=== PATIENT | male | born 1935 | race Caucasian/White ===

== ENCOUNTER 2019-10-04 11:04 | Observation (INO) | payer MEDICARE, OTHER ==
--- NOTE | 2019-10-04 11:35 | ERPHSYRPT ---
- History of Present Illness Time Seen by Provider: 10/04/19 11:31 Source: patient, family Exam Limitations: no limitations Patient Subjective Stated Complaint: Pt son in law states "he was up this morning with a leg that was numb and he just kept walking and he fell at some point and we found him on the basement floor. He fell approx 45 min ago." Triage Nursing Assessment: Pt presented alert and oriented X 2, skin pwd Pt ambulates with an upright steady gait, able to speak in clear full sentences. Pt has large laceration noted to left eyebrow, pupils are perrl. PT does not know what happened. Physician History: This is an 83-year-old gentleman on Plavix and aspirin who complained at approximately 230 this morning that he was having some numbness and weakness in his right lower extremity. Patient was in his basement approximately half hour prior to his arrival to this emergency department and fell hitting his head. Since his head injury this morning he has been bleeding from the laceration site and also confused. Patient is moving all his extremities speaking clearly but does not recall the events. Occurred: this morning Reason for Fall: unknown (But was complaining of right side numbness and weakness several hours prior to the the fall.) Injuries/Pain Location: head Loss of Consciousness: no loss of consciousness Severity of Pain-Max: mild Severity of Pain-Current: mild Associated Symptoms (Fall): confusion, headache (Mild), vision changes (Left eye decreased vision) Allergies/Adverse Reactions: No Known Drug Allergies Allergy (Verified 03/09/19 15:57) Home Medications: Aspirin 81 mg PO DAILY 01/07/13 [History] Clopidogrel Bisulfate 75 mg [PLAVIX 75 MG Tablet] 75 mg PO DAILY 01/07/13 [History] Lisinopril 10 mg [Zestril 10 MG] 10 mg PO DAILY 01/07/13 [History] Metoprolol Tartrate 25 mg [Lopressor 25MG Tab] 25 mg PO BID 01/07/13 [ History] Mometasone Furoate [Asmanex] 220 mcg IH BID 01/07/13 [History] Omeprazole 20 MG [Prilosec 20 mg] 20 mg PO HS 01/07/13 [History] Simvastatin 80 mg PO DAILY 01/07/13 [History] Terazosin HCl 5 mg [Hytrin 5Mg] 5 mg PO HS 01/07/13 [History] Hx Tetanus, Diphtheria Vaccination/Date Given: (unknown) Hx Influenza Vaccination/Date Given: (unknown) Hx Pneumococcal Vaccination/Date Given: (unknown) Immunizations Up to Date: Yes - Review of Systems Constitutional: No Symptoms Eyes: Vision Changes (Left eye after fall) Ears, Nose, & Throat: No Symptoms Respiratory: No Symptoms Cardiac: No Symptoms Abdominal/Gastrointestinal: No Symptoms Genitourinary Symptoms: No Symptoms Musculoskeletal: Fall, Injury, No Neck Pain Skin: No Symptoms Neurological: Headache (Mild), Other (Confusion) Psychological: No Symptoms Endocrine: No Symptoms Hematologic/Lymphatic: No Symptoms, Easy Bleeding, Easy Bruising Immunological/Allergic: No Symptoms All Other Systems: Reviewed and Negative - Past Medical History Pertinent Past Medical History: Yes Neurological History: No Pertinent History ENT History: No Pertinent History Cardiac History: Aneurysm, High Cholesterol, Hypertension, Other Respiratory History: Asthma, Bronchitis, Pneumonia, Sleep Apnea Endocrine Medical History: No Pertinent History Musculoskeletal History: No Pertinent History GI Medical History: GI Bleed, Hernia History: No Pertinent History Psycho-Social History: No Pertinent History Male Reproductive Disorders: Prostate Problems Other Medical History: stents placed times 3 - Past Surgical History Past Surgical History: Yes Neuro Surgical History: No Pertinent History Cardiac: Cardiac Catheterization, Cardiac Stent Respiratory: No Pertinent History Gastrointestinal: Hernia Repair Genitourinary: No Pertinent History Musculoskeletal: Orthopedic Surgery Male Surgical History: Vasectomy Other Surgical History: lt elbow - Social History Smoking Status: Never smoker Exposure to second hand smoke: No Drug Use: none Patient Lives Alone: No - Nursing Vital Signs Nursing Vital Signs: Initial Vital Signs Temperature 98.0 F 10/04/19 11:06 Pulse Rate 72 10/04/19 11:06 Respiratory Rate 18 10/04/19 11:06 Blood Pressure 164/86 10/04/19 11:06 O2 Sat by Pulse Oximetry 94 L 10/04/19 11:06 Pain Scale Pain Intensity 0 - Francisco Coma Score Best Eye Response ([place]): (4) open spontaneously Best Verbal Response (Francisco): (4) confused conversation Best Motor Response (Francisco): (6) obeys commands Francisco Total: 14 - Physical Exam General Appearance: mild distress, alert, anxiety Head Injury: lacerations (above left eye;), swelling, tenderness Eye Exam: PERRL/EOMI, eyes nml inspection, other (None large amount of swelling left side periorbital area. The upper and lower eyelids were retracted cranially and caudally and patient's extraocular muscles were completely intact. ) ENT Exam: airway nml, nml ext.inspection, No evidence of ENT injury, No dental injury, No oral injury Neck Exam: supple, trachea midline, full range of motion, normal alignment, normal inspection Respiratory/Chest Exam: normal breath sounds, No chest tenderness, No respiratory distress, No ecchymosis, No crepitus Cardiovascular Exam: normal heart sounds, regular rate/rhythm Gastrointestinal Exam: soft, No normal bowel sounds, No tenderness Rectal Exam: not done Back Exam: normal inspection, normal range of motion, No CVA tenderness, No vertebral tenderness Extremity Exam: normal inspection, normal range of motion, pelvis stable, No capillary refill <3 sec, No deformities, No lacerations Neurologic Exam: alert, cooperative, platform operations director II-XII nml as tested, normal mood/ affect, nml cerebellar function, nml station & gait, disoriented, confusion Skin Exam: normal color, warm, dry SpO2 Interpretation: borderline oxygenation SpO2: 94 O2 Delivery: Room Air - Course Nursing assessment & vital signs reviewed: Yes EKG Interpreted by Me: RATE (63), Sinus Rhythm, Left Anderson Deviation, NORMAL INTERVALS, NORMAL QRS, Other (No comparison EKG available.) Ordered Tests: Active Orders 24 hr Category Date Time Status Freight Clerk STAT Care 10/04/19 11:44 Active EKG-ER Only STAT Care 10/04/19 11:45 Active IV Insertion STAT Care 10/04/19 11:43 Active Pulse Oximetry (ED) STAT Care 10/04/19 11:43 Active HEAD WITHOUT CONTRAST [CT] Routine Exams 10/04/19 11:29 Completed MRI BRAIN W/O CONTRAST [MRI] Stat Exams 10/04/19 12:12 Completed CBC W DIFF Stat Lab 10/04/19 11:54 Completed CMP Stat Lab 10/04/19 11:54 Completed PROTIME WITH INR Stat Lab 10/04/19 11:54 Completed UA W/RFX UR CULTURE Stat Lab 10/04/19 12:24 Completed Transfer Order Routine Transfer 10/04/19 Ordered Lab/Rad Data: Laboratory Result Diagrams 10/04/19 11:54 10/04/19 11:54 Laboratory Results 10/04/19 10/04/19 10/04/19 Range/Units 12:24 11:54 11:54 WBC (4.0-10.5) K/mm3 RBC (4.1-5.6) M/mm3 Hgb (12.5-18.0) gm/dl Hct (42-50) % MCV (78-100) fl MCH (26-32) pg MCHC (32-36) g/dl RDW (11.5-14.0) % Plt Count (150-450) K/mm3 MPV (7.5-11.0) fl Gran % (36.0-66.0) % Eos # (Auto) (0-0.5) Absolute Lymphs (auto) (1.0-4.6) Absolute Monos (auto) (0.0-1.3) Lymphocytes % (24.0-44.0) % Monocytes % (0.0-12.0) % Eosinophils % (0.00-5.0) % Basophils % (0.0-0.4) % Absolute Granulocytes (1.4-6.9) Basophils # (0-0.4) PT 12.0 (8.83-12.87) SECONDS INR 1.06 (0.8-3.0) Sodium 141 (137-145) mmol/L Potassium 4.1 (3.5-5.1) mmol/L Chloride 109 H (98-107) mmol/L Carbon Dioxide 26 (22-30) mmol/L Anion Gap 9.9 (5-15) MEQ/L BUN 28 H (9-20) mg/dL Creatinine 0.97 (0.66-1.25) mg/dL Estimated GFR > 60.0 ML/MIN Glucose 117 H (74-106) mg/dL Calcium 8.3 L (8.4-10.2) mg/dL Total Bilirubin 0.50 (0.2-1.3) mg/dL AST 34 (17-59) U/L ALT 23 (0-50) U/L Alkaline Phosphatase 84 (38-126) U/L Serum Total Protein 7.1 (6.3-8.2) g/dL Albumin 3.8 (3.5-5.0) g/dL Urine Color YELLOW (YELLOW) Urine Appearance CLEAR (CLEAR) Urine pH 6.0 (5-6) Ur Specific [place] 1.023 (1.005-1.025) Urine Protein NEGATIVE (Negative) Urine Ketones NEGATIVE (NEGATIVE) Urine Blood NEGATIVE (0-5) [place]/ul Urine Nitrite NEGATIVE (NEGATIVE) Urine Bilirubin NEGATIVE (NEGATIVE) Urine Urobilinogen 2 (0-1) mg/dL Ur Leukocyte Esterase NEGATIVE (NEGATIVE) Urine WBC (Auto) NONE (0-5) /HPF Urine RBC (Auto) NONE (0-2) /HPF U Epithel Cells (Auto) NONE (FEW) /HPF Urine Bacteria (Auto) NONE (NEGATIVE) /HPF Urine Mucus (Auto) SLIGHT (NEGATIVE) /HPF Urine Culture Reflexed NO (NO) Urine Glucose NEGATIVE (NEGATIVE) mg/dL 10/04/19 Range/Units 11:54 WBC 10.0 (4.0-10.5) K/mm3 RBC 4.44 (4.1-5.6) M/mm3 Hgb 13.3 (12.5-18.0) gm/dl Hct 39.8 L (42-50) % MCV 89.6 (78-100) fl MCH 30.0 (26-32) pg MCHC 33.4 (32-36) g/dl RDW 14.2 H (11.5-14.0) % Plt Count 324 (150-450) K/mm3 MPV 9.6 (7.5-11.0) fl Gran % 70.8 H (36.0-66.0) % Eos # (Auto) 0.31 (0-0.5) Absolute Lymphs (auto) 1.47 (1.0-4.6) Absolute Monos (auto) 1.07 (0.0-1.3) Lymphocytes % 14.7 L (24.0-44.0) % Monocytes % 10.7 (0.0-12.0) % Eosinophils % 3.1 (0.00-5.0) % Basophils % 0.7 (0.0-0.4) % Absolute Granulocytes 7.11 H (1.4-6.9) Basophils # 0.07 (0-0.4) PT (8.83-12.87) SECONDS INR (0.8-3.0) Sodium (137-145) mmol/L Potassium (3.5-5.1) mmol/L Chloride (98-107) mmol/L Carbon Dioxide (22-30) mmol/L Anion Gap (5-15) MEQ/L BUN (9-20) mg/dL Creatinine (0.66-1.25) mg/dL Estimated GFR ML/MIN Glucose (74-106) mg/dL Calcium (8.4-10.2) mg/dL Total Bilirubin (0.2-1.3) mg/dL AST (17-59) U/L ALT (0-50) U/L Alkaline Phosphatase (38-126) U/L Serum Total Protein (6.3-8.2) g/dL Albumin (3.5-5.0) g/dL Urine Color (YELLOW) Urine Appearance (CLEAR) Urine pH (5-6) Ur Specific [place] (1.005-1.025) Urine Protein (Negative) Urine Ketones (NEGATIVE) Urine Blood (0-5) [place]/ul Urine Nitrite (NEGATIVE) Urine Bilirubin (NEGATIVE) Urine Urobilinogen (0-1) mg/dL Ur Leukocyte Esterase (NEGATIVE) Urine WBC (Auto) (0-5) /HPF Urine RBC (Auto) (0-2) /HPF U Epithel Cells (Auto) (FEW) /HPF Urine Bacteria (Auto) (NEGATIVE) /HPF Urine Mucus (Auto) (NEGATIVE) /HPF Urine Culture Reflexed (NO) Urine Glucose (NEGATIVE) mg/dL - Progress Progress: improved Progress Note: 10/04/19 12:15 Medical decision making: This patient is reexamined and he is alert and oriented x3. He is neurologically intact. The CAT scan does not appear to have acute infarction present. There is no obvious fractures present on the CAT scan. We are awaiting the final report. The next step is to perform an MRI scan of his brain. Patient states he has shrapnel and a BB in his body but no other types of metal. We called Steven, supply chain development manager, to determine whether or not this patient can undergo an MRI scan with the shrapnel and BB present in his body. Steven statesthat this patient can undergo the MRI scan of his brain. 10/04/19 14:[address] Quevedo. I reviewed the patient's history and condition. I reviewed the patient's EKG CAT scan of his brain which shows no acute intracranial pathology or process. I reviewed the patient's MRI of his brain which also shows no acute intracranial pathology or process. Dr. Quevedo agrees that placing the patient in observation is appropriate. We will have the floor perform neurologic checks and repeat laboratory data in the morning. We will place ice pack to the patient's left eye swelling. Counseled pt/family regarding: lab results, diagnosis, need for follow-up, rad results - Departure Departure Disposition: Observation Clinical Impression: Fall, Laceration of forehead, TIA (transient ischemic attack) Condition: Stable Critical Care Time: Yes Critical Care Time(excluding separately billable procedures): Critical 30-74 mins Referrals: JENNY QUEVEDO [Primary Care Provider] -
--- NOTE | 2019-10-04 11:45 | XRAY ---
Indication: Left supraorbital swelling/laceration. Multiple contiguous axial images obtained through the head without contrast. Comparison: January 07, 2013. Again age-appropriate global atrophy and mild periventricular degenerative micro-ischemia bilaterally. No acute intracranial hemorrhage, abnormal extra-axial fluid collection, or mass effect. Fourth ventricle is midline without hydrocephalus. [place]-white matter differentiation preserved. Bony calvarium intact. Visualized paranasal sinuses and mastoid air cells are clear. New large left supraorbital/frontal scalp hematoma/laceration. Impression: 1. New left supraorbital/frontal scalp hematoma/laceration. No underlying fracture or acute intracranial abnormalities. 2. Again atrophy and degenerative micro-ischemia within normal limits for patient's age.
[2019-10-04 11:58] LABS: Absolute Neutrophil Ct (ANC) 7.11 (1.4-6.9); BASOPHIL % 0.7 % (0.0-0.4); Basophil (Absolute #) 0.07 (0-0.4); Eosinophil % 3.1 % (0.00-5.0); Eosinophil (Absolute #) 0.31 (0-0.5); Hematocrit 39.8 % (42-50); Hemoglobin 13.3 gm/dl (12.5-18.0); Lymphocyte (Absolute #) 1.47 (1.0-4.6); Lymphocytes % 14.7 % (24.0-44.0); Mean Cell Volume 89.6 fl (78-100); Mean Corpuscular Hgb Concent. 33.4 g/dl (32-36); Mean Platelet Volume 9.6 fl (7.5-11.0); Monocyte (Absolute #) 1.07 (0.0-1.3); Monocytes % 10.7 % (0.0-12.0); Neutrophil % 70.8 % (36.0-66.0); Platelet Count 324 K/mm3 (150-450); Red Blood Count 4.44 M/mm3 (4.1-5.6); Red Cell Distribution Width 14.2 % (11.5-14.0)
[2019-10-04 12:03] LABS: INR 1.06 (0.8-3.0)
[2019-10-04 12:07] LABS: ALBUMIN 3.8 g/dL (3.5-5.0); ALKALINE PHOSPHATASE 84 U/L (38-126); ANION GAP 9.9 MEQ/L (5-15); BLOOD UREA NITROGEN 28 mg/dL (9-20); CHLORIDE 109 mmol/L (98-107); Calcium 8.3 mg/dL (8.4-10.2); Carbon Dioxide 26 mmol/L (22-30); Creatinine 1 0.97 mg/dL (0.66-1.25); Glucose 117 mg/dL (74-106); Potassium 4.1 mmol/L (3.5-5.1); SGOT/AST 34 U/L (17-59); SGPT/ALT 23 U/L (0-50); SODIUM 141 mmol/L (137-145); Total Protein 7.1 g/dL (6.3-8.2)
[2019-10-04 12:37] LABS: Appearance CLEAR (CLEAR); Bilirubin NEGATIVE (NEGATIVE); Blood NEGATIVE Ery/ul (0-5); Glucose NEGATIVE (NEGATIVE); Ketones NEGATIVE (NEGATIVE); Leukocyte Esterase NEGATIVE (NEGATIVE); Mucus SLIGHT /HPF (NEGATIVE); Nitrite NEGATIVE (NEGATIVE); Protein,Urine Dip NEGATIVE (Negative); Specific Gravity 1.023 (1.005-1.025); Urobilinogen 2 mg/dL (0-1)
--- NOTE | 2019-10-04 14:15 | XRAY ---
Indication: Right-sided weakness. Status post fall. Left supraorbital laceration. Sagittal, coronal, and axial MRI brain was performed using T1, T2, FLAIR, diffusion, and ADC sequences. Comparison: None Age-appropriate global atrophy and mild periventricular degenerative micro-ischemia bilaterally. No acute intracranial hemorrhage, abnormal extra-axial fluid collection, or mass effect. Diffusion images are negative for restricted signal. Fourth ventricle is midline without hydrocephalus. 7/8 cranial nerve complex bilaterally symmetric. Normal flow-void signal within the major intracerebral circulation. Normal appearing craniocervical junction and sella turcica. Paranasal sinuses are clear. Left periorbital soft tissue swelling/hematoma. Impression: 1. Normal aging brain including atrophy and degenerative micro-ischemia. 2. No acute intracranial abnormalities or evidence for evolving large vessel territorial stroke. 3. Left periorbital soft tissue swelling/hematoma.
[2019-10-04] MEDS ORDERED: TYLENOL 325 MG PO PRN (14:58)
[2019-10-04] MEDS ORDERED: Zofran 4 MG/2 ML VIAL IV PRN (14:58)
[2019-10-04] MEDS ORDERED: [UNRECOGNIZED DRUG - REMARK] MC SCH (16:45)
[2019-10-04] MEDS ORDERED: ZOCOR 20MG PO SCH (18:00)
[2019-10-04] MEDS: PATIENT OWN MEDICATION IH SCH (20:00)
[2019-10-04] MEDS: Lopressor 25MG Tab PO SCH (21:03)
[2019-10-04] MEDS ORDERED: TERAZOSIN HCL 5 MG PO SCH (22:00)
[2019-10-04] MEDS ORDERED: HYTRIN 1 MG PO SCH (22:00)
[2019-10-05 05:02] LABS: Absolute Neutrophil Ct (ANC) 5.88 (1.4-6.9); BASOPHIL % 0.4 % (0.0-0.4); Basophil (Absolute #) 0.04 (0-0.4); Eosinophil % 3.3 % (0.00-5.0); Eosinophil (Absolute #) 0.32 (0-0.5); Hematocrit 39.5 % (42-50); Lymphocyte (Absolute #) 2.11 (1.0-4.6); Lymphocytes % 21.7 % (24.0-44.0); Mean Cell Volume 89.8 fl (78-100); Mean Corpuscular Hemoglobin 29.5 pg (26-32); Mean Corpuscular Hgb Concent. 32.9 g/dl (32-36); Mean Platelet Volume 9.8 fl (7.5-11.0); Monocyte (Absolute #) 1.36 (0.0-1.3); Neutrophil % 60.6 % (36.0-66.0); Platelet Count 327 K/mm3 (150-450); Red Cell Distribution Width 14.4 % (11.5-14.0); White Blood Count 9.7 K/mm3 (4.0-10.5)
[2019-10-05 05:27] LABS: ANION GAP 10.6 MEQ/L (5-15); BLOOD UREA NITROGEN 20 mg/dL (9-20); CHLORIDE 106 mmol/L (98-107); Calcium 8.5 mg/dL (8.4-10.2); Carbon Dioxide 26 mmol/L (22-30); Creatinine 1 0.95 mg/dL (0.66-1.25); Glucose 105 mg/dL (74-106); SODIUM 139 mmol/L (137-145)
[2019-10-05 06:35] VITALS: BP 140/79
[2019-10-05] MEDS: PATIENT OWN MEDICATION IH SCH (08:12)
[2019-10-05 08:15] VITALS: PULSE 72; O2SAT 94
[2019-10-05] MEDS: Lopressor 25MG Tab PO SCH (09:42)
[2019-10-05] MEDS ORDERED: LUTEIN PO SCH (10:00)
[2019-10-05] MEDS ORDERED: LYCOPEN PO SCH (10:00)
[2019-10-05] MEDS ORDERED: THERAGRAN MULTIVITAMIN PO SCH (10:00)
[2019-10-05] MEDS ORDERED: NON-FORMULARY ITEM (Simvastatin [Simvastatin] 40 MG) PO SCH (10:00)
[2019-10-05] MEDS ORDERED: Zestril 10 MG PO SCH (10:00)
[2019-10-05] MEDS ORDERED: MULTIVIT MIN PO SCH (10:00)
[2019-10-05] MEDS ORDERED: FLUZONE HIGH-DOSE 2019-20 SYR IM ONE (10:00)
[2019-10-05] MEDS ORDERED: [UNRECOGNIZED DRUG - OTHER] PO SCH (10:00)
[2019-10-05] MEDS ORDERED: Flomax 0.4 MG PO SCH (10:00)
--- NOTE | 2019-10-05 10:16 | SSS ---
DISCHARGE DIAGNOSES: 1) FALL. 2) HEAD TRAUMA WITH LACERATION TO THE SCALP. HISTORY: The patient is an 83 year-old white male who apparently had some weakness of his left leg, this was concerning for the possibility of transient ischemic attack. The patient however told me that he was chasing a grandchild around, tripped and hit his head on a pole supporting the basement. Either way he has a laceration over his head. He appears to be improving by the time I saw shortly after admission on 10/04/2019. PAST MEDICAL/SURGICAL HISTORY: Significant for coronary artery disease. He has had stents placed and therefore takes aspirin and Plavix. He has hypertension for which he takes lisinopril and metoprolol. He takes mometasone for a rash, omeprazole for gastroesophageal reflux disease, Simvastatin and terazosin. HOME MEDICATIONS: Aspirin, Plavix, lisinopril, metoprolol, mometasone, omeprazole, Simvastatin, terazosin. ALLERGIES: NKDA. PHYSICAL EXAMINATION: The patient's vital signs on admission showed his temperature to be 98.0F, pulse 72, respiratory rate 18, blood pressure 164/86. O2 saturation 94%. HEENT: Revealed trauma over the left frontal area which is currently covered with bandage dressing apparently with stitched 5 cm laceration in the emergency room. The patient has significant ecchymosis over his left eye in fact completely closing left eye. The right eye has some bruising as well. NECK: Supple without lymphadenopathy, thyromegaly or JVD. CHEST: Clear to auscultation. HEART: Regular rate and rhythm. ABDOMEN: Soft. EXTREMITIES: Without cyanosis, clubbing or edema. NEUROLOGIC: The patient is alert and oriented x3. No focal deficits were noted. LAB DATA AND TESTS: The patient's laboratory studies revealed his white count to be 9,700, hemoglobin 13.0, PLT count 327,000. His metabolic panel showed glucose of 105, BUN 20, creatinine 0.95. Electrolytes were normal. UA was normal. International normalized ratio was 1.06. He had CT scan of the head and also MRI of the same showing no underlying fracture or acute intracranial abnormalities. HOSPITAL COURSE: The patient was monitored overnight with neural checks and has done quite well. He is currently eating breakfast at bedside and is anxious to go home. He will discharge home at this time. Follow up in the office in a week to remove the stitches. He is to call us if he has any problems in the interim. We will ask him to hold his blood thinners of the aspirin and Plavix for one more day to help keep the swelling and bleeding down in the face.
== END 2019-10-05 10:10 | disposition home or self-care (01) ==
LOC: ED 11:04 → MED SURG 14:51
PROVIDERS: ADMIT Family Medicine; ATTEND Family Medicine
DX: S01.01XA Laceration without foreign body of scalp, initial encounter (principal); W18.30XA Fall on same level, unspecified, initial encounter; Y92.009 Unspecified place in unspecified non-institutional (private) residence as the place of occurrence of the external cause; I10 Essential (primary) hypertension; I25.10 Atherosclerotic heart disease of native coronary artery without angina pectoris; Z79.01 Long term (current) use of anticoagulants; Z79.899 Other long term (current) drug therapy
CPT/HCPCS: 12002; 36415; 70450; 70551; 80048; 80053; 81001; 85025; 85610; 93005; 93041; 93268; 94640; 94760; 99291; G0378; 36000; 90662; 99285; A9270-GY

== ENCOUNTER 2023-06-29 06:28 | Observation (INO) | payer MEDICARE, OTHER ==
--- NOTE | 2023-06-29 06:47 | ERPHSYRPT ---
- History of Present Illness Source: patient, family Exam Limitations: no limitations Timing/Duration: yesterday Severity: moderate Associated Symptoms: nausea, abdominal pain, chills Hx Tetanus, Diphtheria Vaccination/Date Given: (unknown) Hx Influenza Vaccination/Date Given: (unknown) Hx Pneumococcal Vaccination/Date Given: (unknown) <JIN RUIZ - Last Filed: 06/29/23 06:51> <BETH BENTON - Last Filed: 06/29/23 09:25> - History of Present Illness Time Seen by Provider: 06/29/23 06:42 Physician History: pt was doing well yesterday but today has fever and feels like he needs to throw up. He denies specific pain but had hernia repairs recently and has a distended and generally tender abdomen. He also has had CAD and 3 stents h which have not bothered him for years. They had a sick relative last week who tested negative for Covid. The and son were in ER as independent sources for the HX. DIscussed with family and Pt, the rsiks/benefits for testing with CT Abd, CBC, CMP, EKG, Trops, BNP, Lipase, Samara, Lactate, UA, and Tx with IVF andf Zofran and they wish to proceed. These are odered, and results discussed. (JIN RUIZ) Allergies/Adverse Reactions: No Known Drug Allergies Allergy (Verified 06/29/23 06:59) Home Medications: Aspirin 81 mg PO DAILY 01/07/13 [History] Clopidogrel Bisulfate [PLAVIX Tablet] 75 mg PO DAILY 01/07/13 [History] Lisinopril 10 mg [Zestril 10 MG] 10 mg PO DAILY 01/07/13 [History] Metoprolol Tartrate 25 mg [Lopressor 25MG Tab] 25 mg PO BID 01/07/13 [History] Simvastatin 40 mg PO DAILY 01/07/13 [History] Terazosin HCl 5 mg [Hytrin 5Mg] 5 mg PO HS 01/07/13 [History] Multivit-Min/FA/Lycopen/Lutein [Centrum Silver Tablet] 1 tab PO DAILY 10/04/19 [History] Tamsulosin HCl 0.4 mg [Flomax 0.4 MG] 0.4 mg PO DAILY 10/04/19 [History] - Review of Systems Constitutional: Fever, Chills Eyes: No Symptoms Ears, Nose, & Throat: No Symptoms Respiratory: No Cough, No Dyspnea Cardiac: No Chest Pain, No Edema, No Syncope Abdominal/Gastrointestinal: Abdominal Pain, Nausea, No Vomiting, No Diarrhea Genitourinary Symptoms: No Dysuria Musculoskeletal: No Back Pain, No Neck Pain Skin: No Rash Neurological: No Dizziness, No Focal Weakness, No Sensory Changes Psychological: No Symptoms Endocrine: No Symptoms Hematologic/Lymphatic: No Symptoms Immunological/Allergic: No Symptoms All Other Systems: Reviewed and Negative <JIN RUIZ - Joaquín Filed: 06/29/23 06:51> - Past Medical History Pertinent Past Medical History: Yes Neurological History: No Pertinent History ENT History: No Pertinent History Cardiac History: Aneurysm, High Cholesterol, Hypertension, Other Respiratory History: Asthma, Bronchitis, Pneumonia, Sleep Apnea Endocrine Medical History: No Pertinent History Musculoskeletal History: No Pertinent History GI Medical History: GI Bleed, Hernia History: No Pertinent History Psycho-Social History: No Pertinent History Male Reproductive Disorders: Prostate Problems Other Medical History: stents placed times 3 - Past Surgical History Past Surgical History: Yes Neuro Surgical History: No Pertinent History Cardiac: Cardiac Catheterization, Cardiac Stent Respiratory: No Pertinent History Gastrointestinal: Hernia Repair Genitourinary: No Pertinent History Musculoskeletal: Orthopedic Surgery Male Surgical History: Vasectomy Other Surgical History: lt elbow - Social History Smoking Status: Never smoker Exposure to second hand smoke: No Drug Use: none Patient Lives Alone: No <JIN RUIZ - Joaquín Filed: 06/29/23 06:51> - Physical Exam General Appearance: mild distress, alert Eye Exam: PERRL/EOMI, eyes nml inspection Ears, Nose, Throat Exam: normal ENT inspection, TMs normal, pharynx normal, moist mucous membranes Neck Exam: normal inspection, non-tender, supple, full range of motion Respiratory Exam: normal breath sounds, lungs clear, No respiratory distress Cardiovascular Exam: regular rate/rhythm, normal heart sounds, normal peripheral pulses Gastrointestinal/Abdomen Exam: soft, normal bowel sounds, tenderness, guarding, No mass Rectal Exam: deferred Back Exam: normal inspection, normal range of motion, No CVA tenderness, No vertebral tenderness Extremity Exam: normal inspection, normal range of motion, pelvis stable Neurologic Exam: alert, oriented x 3, cooperative, normal mood/affect, nml cerebellar function, nml station & gait, sensation nml, No motor deficits Skin Exam: normal color, warm, dry, No rash Lymphatic Exam: No adenopathy SpO2 Interpretation: borderline oxygenation SpO2: 93 O2 Delivery: Room Air <JIN RUIZ - Last Filed: 06/29/23 06:51> - Nursing Vital Signs Nursing Vital Signs: Initial Vital Signs Temperature 99.8 F 06/29/23 06:41 Pulse Rate 88 06/29/23 06:41 Respiratory Rate 20 06/29/23 06:41 Blood Pressure 131/69 06/29/23 06:41 O2 Sat by Pulse Oximetry 91 L 06/29/23 06:41 Pain Scale Pain Intensity 6 Ordered Tests: Active Orders 24 hr Category Date Time Status EKG-ER Only STAT Care 06/29/23 06:48 Active IV Insertion STAT Care 06/29/23 06:48 Active ABDOMEN AND PELVIS W/0 CONTRAS [CT] Stat Exams 06/29/23 06:49 Completed CHEST 1 VIEW (PORTABLE) Stat Exams 06/29/23 06:49 Completed AMYLASE Stat Lab 06/29/23 07:15 Completed CBC W DIFF Stat Lab 06/29/23 07:15 Completed CMP Stat Lab 06/29/23 07:15 Completed LIPASE Stat Lab 06/29/23 07:15 Completed Lactic Acid Stat Lab 06/29/23 07:43 Completed NT PRO BNPII Stat Lab 06/29/23 07:15 Completed TROPONIN Q4H Lab 06/29/23 07:15 Completed TROPONIN Q4H Lab 06/29/23 11:00 Ordered TROPONIN Q4H Lab 06/29/23 15:00 Ordered UA W/RFX UR CULTURE Stat Lab 06/29/23 06:48 Ordered Respiratory Therapy Assessment DAILY RT 06/29/23 08:47 Active Transfer Order Routine Transfer 06/29/23 Ordered Medication Summary Generic Name Dose Route Start Last Admin Trade Name Freq PRN Reason Stop Dose Admin Sodium Chloride 1,000 mls @ 100 mls/hr 06/29/23 07:00 06/29/23 08:06 Sodium Chloride 0.9% 1000 Ml IV 07/29/23 06:59 100 mls/hr .Q10H DOM Administration Discontinued Medications Generic Name Dose Route Start Last Admin Trade Name Freq PRN Reason Stop Dose Admin Albuterol/Ipratropium 3 ml 06/29/23 08:31 06/29/23 08:44 Ipratropium/Albuterol Sulfate 3 Ml Ampul.Neb IH 06/29/23 08:32 3 ml STAT ONE Administration Albuterol/Ipratropium Confirm 06/29/23 08:42 Ipratropium/Albuterol Sulfate 3 Ml Ampul.Neb Administered 06/29/23 08:43 Dose 3 ml IH .STK-MED ONE Famotidine 20 mg 06/29/23 06:48 06/29/23 08:10 Famotidine 20 Mg/1 Vial IV 06/29/23 06:49 20 mg STAT ONE Administration Famotidine Confirm 06/29/23 07:56 Famotidine 20 Mg/1 Vial Administered 06/29/23 07:57 Dose 20 mg IV .STK-MED ONE Piperacillin Sod/Tazobactam 100 mls @ 200 mls/hr 06/29/23 07:03 06/29/23 08:11 Sod 3.375 gm/ Sodium Chloride IV 06/29/23 07:32 200 mls/hr STAT ONE Administration Sodium Chloride Confirm 06/29/23 07:57 Sodium Chloride 100ml Mini-Bag Plus Administered 06/29/23 07:58 Dose 100 mls @ ud IV .STK-MED ONE Ondansetron HCl 4 mg 06/29/23 06:48 06/29/23 08:10 Ondansetron Hcl 4 Mg/2 Ml Vial IV 06/29/23 06:49 4 mg STAT ONE Administration Ondansetron HCl Confirm 06/29/23 07:56 Ondansetron Hcl 4 Mg/2 Ml Vial Administered 06/29/23 07:57 Dose 4 mg .ROUTE .STK-MED ONE Piperacillin Sod/Tazobactam Sod Confirm 06/29/23 07:56 Piperacillin/Tazobactam Sodium 3.375 Gm Vial Administered 06/29/23 07:57 Dose 3.375 gm IV .STK-MED ONE Lab/Rad Data: Laboratory Result Diagrams 06/29/23 07:15 06/29/23 07:15 Laboratory Results 06/29/23 06/29/23 06/29/23 Range/Units 07:43 07:15 07:15 WBC (4.0-10.5) x10^3/uL RBC (4.1-5.6) x10^6/uL Hgb (12.5-18.0) g/dL Hct (42-50) % MCV (78-100) fL MCH (26-32) pg MCHC (32-36) g/dL RDW (11.5-14.0) % Plt Count (150-450) x10^3/uL MPV (7.5-11.0) fL Gran % (36.0-66.0) % Immature Gran % (Auto) (0.00-0.4) % Nucleat RBC Rel Count (0.00-0.1) % Eos # (Auto) (0-0.5) x10^3/uL Immature Gran # (Auto) (0.00-0.03) x10^3u/L Absolute Lymphs (auto) (1.0-4.6) x10^3/uL Absolute Monos (auto) (0.0-1.3) x10^3/uL Absolute Nucleated RBC (0.00-0.01) x10^3u/L Lymphocytes % (24.0-44.0) % Monocytes % (0.0-12.0) % Eosinophils % (0.00-5.0) % Basophils % (0.0-0.4) % Absolute Granulocytes (1.4-6.9) x10^3/uL Basophils # (0-0.4) x10^3/uL Sodium 134 L (137-145) mmol/L Potassium 3.9 (3.5-5.1) mmol/L Chloride 103 (98-107) mmol/L Carbon Dioxide 21 L (22-30) mmol/L Anion Gap 13.9 (5-15) MEQ/L BUN 18 (9-20) mg/dL Creatinine 0.92 (0.66-1.25) mg/dL Estimated GFR 80.5 ML/MIN Glucose 133 H (74-106) mg/dL Lactic Acid 1.2 (0.4-2.0) Calcium 8.5 (8.4-10.2) mg/dL Total Bilirubin 1.40 H (0.2-1.3) mg/dL AST 35 (17-59) U/L ALT 21 (0-50) U/L Alkaline Phosphatase 102 (38-126) U/L Troponin I < 0.012 (0.000-0.034) ng/mL NT-Pro-B Natriuret Pep 172 (<300) pg/mL Serum Total Protein 7.2 (6.3-8.2) g/dL Albumin 3.9 (3.5-5.0) g/dL Amylase 73 (30-110) U/L Lipase 39 (23-300) U/L Influenza Type A Ag (NEGATIVE) Influenza Type B Ag (NEGATIVE) RSV (PCR) (NEGATIVE) SARS-CoV-2 (PCR) (NEGATIVE) Slides for Path Review 06/29/23 06/29/23 Range/Units 07:15 06:57 WBC 13.7 H (4.0-10.5) x10^3/uL RBC 4.11 (4.1-5.6) x10^6/uL Hgb 12.1 L (12.5-18.0) g/dL Hct 37.3 L (42-50) % MCV 90.8 (78-100) fL MCH 29.4 (26-32) pg MCHC 32.4 (32-36) g/dL RDW 14.2 H (11.5-14.0) % Plt Count 289 (150-450) x10^3/uL MPV 9.3 (7.5-11.0) fL Gran % 86.7 H (36.0-66.0) % Immature Gran % (Auto) 0.4 (0.00-0.4) % Nucleat RBC Rel Count 0.0 (0.00-0.1) % Eos # (Auto) 0.04 (0-0.5) x10^3/uL Immature Gran # (Auto) 0.06 H (0.00-0.03) x10^3u/L Absolute Lymphs (auto) 0.52 L (1.0-4.6) x10^3/uL Absolute Monos (auto) 1.16 (0.0-1.3) x10^3/uL Absolute Nucleated RBC 0.00 (0.00-0.01) x10^3u/L Lymphocytes % 3.8 L (24.0-44.0) % Monocytes % 8.5 (0.0-12.0) % Eosinophils % 0.3 (0.00-5.0) % Basophils % 0.3 (0.0-0.4) % Absolute Granulocytes 11.84 H (1.4-6.9) x10^3/uL Basophils # 0.04 (0-0.4) x10^3/uL Sodium (137-145) mmol/L Potassium (3.5-5.1) mmol/L Chloride (98-107) mmol/L Carbon Dioxide (22-30) mmol/L Anion Gap (5-15) MEQ/L BUN (9-20) mg/dL Creatinine (0.66-1.25) mg/dL Estimated GFR ML/MIN Glucose (74-106) mg/dL Lactic Acid (0.4-2.0) Calcium (8.4-10.2) mg/dL Total Bilirubin (0.2-1.3) mg/dL AST (17-59) U/L ALT (0-50) U/L Alkaline Phosphatase (38-126) U/L Troponin I (0.000-0.034) ng/mL NT-Pro-B Natriuret Pep (<300) pg/mL Serum Total Protein (6.3-8.2) g/dL Albumin (3.5-5.0) g/dL Amylase (30-110) U/L Lipase (23-300) U/L Influenza Type A Ag NEGATIVE (NEGATIVE) Influenza Type B Ag NEGATIVE (NEGATIVE) RSV (PCR) POSITIVE (NEGATIVE) SARS-CoV-2 (PCR) NEGATIVE (NEGATIVE) Slides for Path Review YES - Progress Progress: improved, re-examined Counseled pt/family regarding: lab results, diagnosis, need for follow-up, rad results <JIN RUIZ - Last Filed: 06/29/23 06:51> - Progress Discussed with Dr.: Other (Dr. Hazel) <BETH BENTON - Last Filed: 06/29/23 09:25> - Progress Progress Note: 06/29/23 06:52 pt is handed off to Dr. Benton for completion of workup and final Tx/Disposition at change of shift after discussion of presentation and findings as well as pending labs and working DDX. (JIN RUIZ) 06/29/23 09:22 Patient is checked out to me at shift change from Dr. Baldwin with pending workup. Patient presented with cough congestion fever symptoms with nausea with dry heaving. Patient was getting hypoxic with saturation around 88%, placed on 2 L oxygen. Chest x-ray revealed bilateral airspace opacities reviewed by me, official report is pending. Patient is given a dose of Zosyn. Patient has a positive RSV but negative COVID and flu. CT abdomen pelvis is negative for any acute abdominal pelvic findings. White count of 13, fairly unremarkable chemistries except for bilirubin of 1.4 and negative troponins. I have shared the results of workup with patient and family and recommended admission which they agree. I have discussed with Dr. Zaldivar, reviewed history, workup and agreed with admission. (BETH BENTON) Medical Desision Making - Independent Historian Additional History obtained from: Spouse, Child - Discussion of managment Reviewed:: Test results, Need for additional workup Agreed on:: Treatment plan, need for follow-up - Diagnostic Testing Diagnostic test were ordered, analyzed, and reviewed by me: Yes Radiological Interpretation: Reviewed by me, Teleradiologist Report - Risk of complications The pt has a mod risk of morbidity or mortality based on: Need for prescription drug management The pt has a high risk of morbidity or mortality based on: Decision regarding hospitilization or escalation of hosp level of care <JIN RUIZ - Last Filed: 06/29/23 06:51> - Discussion of managment Care discussed with:: hospitalist Will see patient: in hospital <BETH BENTON - Last Filed: 06/29/23 09:25> - Departure Critical Care Time: No <JIN RUIZ - Last Filed: 06/29/23 06:51> - Departure Departure Disposition: Observation <BETH BENTON - Last Filed: 06/29/23 09:25> - Departure Clinical Impression: Bilateral pneumonia, RSV (respiratory syncytial virus infection), Nausea Condition: Good Referrals: JENNY WALTON [Primary Care Provider] - Follow up/PCP as directed
[2023-06-29] MEDS ORDERED: Pepcid 20 MG VIAL IV ONE ×2 (06:48→07:56)
[2023-06-29] MEDS ORDERED: Zofran 4 MG/2 ML VIAL IV ONE (06:48)
[2023-06-29] MEDS ORDERED: PIPERACILLIN/TAZOBACTAM 3.375 GM in Sodium Chloride 100ML MINI-BAG PLUS 100 ML IV ONE (07:03)
[2023-06-29 07:19] LABS: Absolute Neutrophil Ct (ANC) 11.84 x10^3/uL (1.4-6.9); BASOPHIL % 0.3 % (0.0-0.4); Basophil (Absolute #) 0.04 x10^3/uL (0-0.4); Eosinophil % 0.3 % (0.00-5.0); Eosinophil (Absolute #) 0.04 x10^3/uL (0-0.5); Hematocrit 37.3 % (42-50); Hemoglobin 12.1 g/dL (12.5-18.0); IMMATURE GRAN # 0.06 x10^3u/L (0.00-0.03); IMMATURE GRAN % 0.4 % (0.00-0.4); Lymphocyte (Absolute #) 0.52 x10^3/uL (1.0-4.6); Lymphocytes % 3.8 % (24.0-44.0); Mean Cell Volume 90.8 fL (78-100); Mean Corpuscular Hemoglobin 29.4 pg (26-32); Mean Corpuscular Hgb Concent. 32.4 g/dL (32-36); Mean Platelet Volume 9.3 fL (7.5-11.0); Monocyte (Absolute #) 1.16 x10^3/uL (0.0-1.3); Monocytes % 8.5 % (0.0-12.0); Neutrophil % 86.7 % (36.0-66.0); Platelet Count 289 x10^3/uL (150-450); Red Blood Count 4.11 x10^6/uL (4.1-5.6); Red Cell Distribution Width 14.2 % (11.5-14.0); White Blood Count 13.7 x10^3/uL (4.0-10.5)
[2023-06-29 07:44] LABS: INFLUENZA A NEGATIVE (NEGATIVE); INFLUENZA B NEGATIVE (NEGATIVE); SARS-CoV-2 Xpert Express NEGATIVE (NEGATIVE)
[2023-06-29 07:47] LABS: ALBUMIN 3.9 g/dL (3.5-5.0); ANION GAP 13.9 MEQ/L (5-15); BILIRUBIN,TOTAL 1.4 mg/dL (0.2-1.3); Calcium 8.5 mg/dL (8.4-10.2); Creatinine 1 0.92 mg/dL (0.66-1.25); EST GLOMERULAR FILTRATION RATE 80.5 ML/MIN; Potassium 3.9 mmol/L (3.5-5.1); Total Protein 7.2 g/dL (6.3-8.2)
[2023-06-29 07:48] LABS: RESPIRATORY SYNCTIAL VIRUS POSITIVE (NEGATIVE)
[2023-06-29 07:55] LABS: Slide Review 1 YES
[2023-06-29] MEDS ORDERED: Zofran 4 MG/2 ML VIAL ONE (07:56)
[2023-06-29] MEDS ORDERED: PIPERACILLIN/TAZOBACTAM IV ONE (07:56)
[2023-06-29] MEDS ORDERED: Sodium Chloride 100ML MINI-BAG PLUS 100 ML IV ONE (07:57)
[2023-06-29] MEDS ORDERED: Sodium Chloride 0.9% 1000 ML 1,000 ML ONE (07:57)
[2023-06-29] MEDS: Sodium Chloride 0.9% 1000 ML 1,000 ML IV SCH ×2 (08:06→18:08)
--- NOTE | 2023-06-29 08:16 | XRAY ---
CLINICAL HISTORY:abd tenderness and fever COMPARISON:No prior studies were submitted. TECHNIQUE:Direct contiguous axial CT images were acquired through the abdomen and pelvis without contrast using soft tissue and bone algorithms. Reformatted images were performed. LIMITATIONS: Lack of intravenous contrast limits evaluation of solid viscera. Lack of oral contrast limits the evaluation of the bowel loops. FINDINGS: Lung bases: Bilateral lower lung zones hazy infiltrates are seen. Right lower lung lobe 2 adjacent tiny calcific nodules are seen measuring 4and 5 mm. A hiatus hernia is seen. Liver: MIldly enlarged and measures 16.7 cm in its CC diameter. No evidence of mass. No evidence of dilated ducts. Gallbladder fossa: Unremarkable Spleen: Few tiny calcific foci likely granulomata, no definite lesions. Pancreas: Grossly unremarkable. Atrophic changes are seen. Adrenal glands: Grossly unremarkable size, contour and density. Kidneys: In anatomic position. Grossly unremarkable renal size, contour and density. No renal or ureteral calculi. No hydronephrosis. Perinephric space is unremarkable. Bilateral variable sized renal cortical cysts are seen , largest on right lower pole measuring 7.8x8.8x7.3 cm . Retroperitoneum: No retroperitoneal lymphadenopathy. Abdominal aorta. atherosclerotic calcifications are seen with tortuous course. Peritoneal cavity: No evidence of free air or ascites. Gastrointestinal tract: Nondistended small bowel and colon. No evidence of obstruction. Non-complicated sigmoid diverticulosis is noted. Appendix: Unremarkable. Pelvis: Solid and hollow viscera grossly unremarkable. Bladder is distended. Right inguinal hernia measuring 3.1x2.8 cm. Osseous structures: L4 anterior listhesis. Moderate lumbar spondylsosis and old healed right L4 pars break is seen. IMPRESSION: 1. No acute intra-abdominal pathology was identified. 2. 8 cm renal cyst in lower pole of right kidney. 3. Recommendation: Follow up as clinically indicated. Electronically Signed by: Gina Barker MD. (06/29/2023 08:11:00 EST)
[2023-06-29] MEDS ORDERED: DUONEB 0.5-3 MG/3 ml Neb IH ONE ×2 (08:31→08:42)
--- NOTE | 2023-06-29 08:44 | XRAY ---
Indication: Fever and cough. Comparison: March 11, 2019 Portable chest demonstrates new subtle bibasilar hazy interstitial alveolar opacities. Heart not enlarged again with tortuous descending aorta and chunky mediastinal calcified nodes. Bony thorax intact again with osteopenia and degenerative changes.
[2023-06-29] MEDS ORDERED: Compazine 10 MG/2 ML IM PRN (12:27)
[2023-06-29] MEDS ORDERED: Zestril 10 MG PO SCH (13:00)
[2023-06-29] MEDS: HYTRIN 1 MG PO SCH (13:19)
[2023-06-29] MEDS: Mucinex 600MG ER Tabs PO SCH ×2 (13:19→21:23)
[2023-06-29] MEDS: PLAVIX Tablet PO SCH (13:19)
[2023-06-29] MEDS: Flonase NASAL NS SCH (13:20)
[2023-06-29] MEDS: Zestril 20 MG PO SCH (13:20)
[2023-06-29 13:42] LABS: Appearance Clear (Clear); Bacteria None Seen /HPF (None Seen); Bilirubin Negative (Negative); Blood Negative (Negative); Epithelial Cells None Seen /HPF (None Seen); Glucose, Urine Negative (Negative); Hyaline Casts NONE SEEN /LPF (0-2); Ketones Negative (Negative); Leukocyte Esterase Negative (Negative); Nitrite Negative (Negative); Ph 6.5 (4.6-8.0); Protein,Urine Dip Negative (Negative); RBC 0-2 /HPF (0-5); Specific Gravity 1.015 (1.005-1.030); WBC 0-2 /HPF (0-5)
[2023-06-29 13:43] LABS: ADD URINE CULTURE? NO (NO)
[2023-06-29] MEDS: Zithromax 500 MG/ 250 ML NaCl Premix 500 MG/250 ML IVPB IV SCH (13:56)
[2023-06-29] MEDS: DUONEB 0.5-3 MG/3 ml Neb IH SCH ×2 (14:12→17:27)
--- NOTE | 2023-06-29 16:56 | PCM.HP ---
History of Present Illness - Chief Complaint Chief Complaint: Pneumonia Date: 06/29/23 History of Present Illness: is a 87 year old male with PMHX of hyperlipidemia, HTN, Aneurysm, BPH, Asthma, Sleep apnea, cardiac stents on Plavix. Patient presented to ER w ith cough, congestion, fever, with nausea and dry heaving. Patient was getting hypoxic in ER with saturation around 88%, placed on 2 L oxygen. Chest XR and CT of chest reviewed. Pt appears to have pneumonia. Patient is given a dose of Zosyn in the ER and will continue IP. Patient has a positive RSV but negative COVID and flu. CT abdomen pelvis is negative for any acute abdominal pelvic findings. White count of 13, fairly unremarkable chemistries except for bilirubin of 1.4 and negative troponins. He is c/o nasal stuffiness and cough with yellow sputum production. - Review of Systems Constitutional: Fever, No Chills Eyes: No Symptoms Ears, Nose, & Throat: No Symptoms, Nose Congestion, Sinus Drainage Respiratory: Cough, Short Of Breath, Wheezing Cardiac: No Chest Pain, No Edema, No Syncope Abdominal/Gastrointestinal: Nausea, Vomiting, No Abdominal Pain, No Diarrhea Genitourinary Symptoms: No Dysuria Musculoskeletal: No Back Pain, No Neck Pain Skin: No Rash Neurological: No Dizziness, No Focal Weakness, No Sensory Changes Psychological: No Symptoms Endocrine: No Symptoms Hematologic/Lymphatic: No Symptoms Immunological/Allergic: No Symptoms Medications & Allergies Home Medications: Home Medication List Clopidogrel Bisulfate [PLAVIX Tablet] 75 mg PO DAILY 01/07/13 [History Confirmed 06/29/23] Lisinopril 10 mg [Zestril 10 MG] 20 mg PO DAILY 01/07/13 [History Co nfirmed 06/29/23] Simvastatin 40 mg PO EVENING MEAL 01/07/13 [History Confirmed 06/29/23] Terazosin HCl 5 mg [Hytrin 5Mg] 5 mg PO DAILY 01/07/13 [History Confirmed 06/29/23] Tamsulosin HCl 0.4 mg [Flomax 0.4 MG] 0.4 mg PO EVENING MEAL 10/04/19 [History Confirmed 06/29/23] Allergies/Adverse Reactions: Allergies Allergy/AdvReac Type Severity Reaction Status Date / Time No Known Drug Allergies Allergy Verified 06/29/23 06:59 - Past Medical History Past Medical History: Yes Neurological History: No Pertinent History ENT History: Cataracts Cardiac History: Aneurysm, High Cholesterol, Hypertension, Other Respiratory History: Asthma, Bronchitis, Pneumonia, Sleep Apnea Endocrine Medical History: No Pertinent History Musculoskelatal History: Arthritis GI Medical History: GI Bleed, Hernia History: No Pertinent History Pyscho-Social History: No Pertinent History Male Reproductive Disorders: Prostate Problems Comment: stents placed times 3, 3 hernias - Past Surgical History Past Surgical History: Yes Neuro Surgical History: No Pertinent History Cardiac History: Cardiac Catheterization, Cardiac Stent Respiratory Surgery: No Pertinent History GI Surgical History: Hernia Repair Genitourinary Surgical Hx: No Pertinent History Musculskeletal Surgical Hx: Orthopedic Surgery Male Surgical History: Vasectomy Other Surgical History: elbow surgery - Social History Smoking Status: Never smoker Exposure to second hand smoke: No Alcohol: None Drug Use: none - Physical Exam Vital Signs: Vital Signs - 24 hr Temp Pulse Resp BP BP Pulse Ox 06/29/23 14:17 85 22 94 L 06/29/23 11:52 76 20 92 L 06/29/23 11:43 98.7 F 75 16 121/58 94 L 06/29/23 10:30 117/65 94 L 06/29/23 10:00 102/57 92 L 06/29/23 09:30 92/57 90 L 06/29/23 09:00 80/50 06/29/23 08:47 84 20 92 L 06/29/23 08:30 102/57 91 L 06/29/23 08:23 87 17 115/63 94 L 06/29/23 08:00 115/63 91 L 06/29/23 06:57 93 L 06/29/23 06:41 99.8 F 88 20 131/69 91 L General Appearance: no apparent distress, alert Neurologic Exam: alert, oriented x 3, cooperative, normal mood/affect, nml cerebellar function, nml station & gait, sensation nml, No motor deficits Eye Exam: PERRL/EOMI, eyes nml inspection Ears, Nose, Throat Exam: normal ENT inspection, TMs normal, pharynx normal, moist mucous membranes Neck Exam: normal inspection, non-tender, supple, full range of motion Respiratory Exam: normal breath sounds, lungs clear, wheezing, No respiratory distress Cardiovascular Exam: regular rate/rhythm, normal heart sounds, normal peripheral pulses Gastrointestinal/Abdomen Exam: soft, normal bowel sounds, No tenderness, No mass Back Exam: normal inspection, normal range of motion, No CVA tenderness, No vertebral tenderness Extremity Exam: normal inspection, normal range of motion, pelvis stable Skin Exam: normal color, warm, dry, No rash Lymphatic Exam: No adenopathy Results - Labs Lab/Micro Results: Lab Results-Last 24 Hours 06/29/23 06/29/23 06/29/23 Range/Units 06:57 07:15 07:15 WBC 13.7 H (4.0-10.5) x10^3/uL RBC 4.11 (4.1-5.6) x10^6/uL Hgb 12.1 L (12.5-18.0) g/dL Hct 37.3 L (42-50) % MCV 90.8 (78-100) fL MCH 29.4 (26-32) pg MCHC 32.4 (32-36) g/dL RDW 14.2 H (11.5-14.0) % Plt Count 289 (150-450) x10^3/uL MPV 9.3 (7.5-11.0) fL Gran % 86.7 H (36.0-66.0) % Immature Gran % (Auto) 0.4 (0.00-0.4) % Nucleat RBC Rel Count 0.0 (0.00-0.1) % Eos # (Auto) 0.04 (0-0.5) x10^3/uL Immature Gran # (Auto) 0.06 H (0.00-0.03) x10^3u/L Absolute Lymphs (auto) 0.52 L (1.0-4.6) x10^3/uL Absolute Monos (auto) 1.16 (0.0-1.3) x10^3/uL Absolute Nucleated RBC 0.00 (0.00-0.01) x10^3u/L Lymphocytes % 3.8 L (24.0-44.0) % Monocytes % 8.5 (0.0-12.0) % Eosinophils % 0.3 (0.00-5.0) % Basophils % 0.3 (0.0-0.4) % Absolute Granulocytes 11.84 H (1.4-6.9) x10^3/uL Basophils # 0.04 (0-0.4) x10^3/uL Sodium 134 L (137-145) mmol/L Potassium 3.9 (3.5-5.1) mmol/L Chloride 103 (98-107) mmol/L Carbon Dioxide 21 L (22-30) mmol/L Anion Gap 13.9 (5-15) MEQ/L BUN 18 (9-20) mg/dL Creatinine 0.92 (0.66-1.25) mg/dL Estimated GFR 80.5 ML/MIN Glucose 133 H (74-106) mg/dL Lactic Acid (0.4-2.0) Calcium 8.5 (8.4-10.2) mg/dL Total Bilirubin 1.40 H (0.2-1.3) mg/dL AST 35 (17-59) U/L ALT 21 (0-50) U/L Alkaline Phosphatase 102 (38-126) U/L Troponin I (0.000-0.034) ng/mL NT-Pro-B Natriuret Pep 172 (<300) pg/mL Serum Total Protein 7.2 (6.3-8.2) g/dL Albumin 3.9 (3.5-5.0) g/dL Amylase 73 (30-110) U/L Lipase 39 (23-300) U/L Urine Color (Yellow) Urine Appearance (Clear) Urine pH (4.6-8.0) Ur Specific [place] (1.005-1.030) Urine Protein (Negative) Urine Glucose (UA) (Negative) mg/dL Urine Ketones (Negative) Urine Blood (Negative) Urine Nitrite (Negative) Urine Bilirubin (Negative) Urine Urobilinogen (0.2) mg/dL Ur Leukocyte Esterase (Negative) U Hyaline Cast (Auto) (0-2) /LPF Urine Microscopic RBC (0-5) /HPF Urine Microscopic WBC (0-5) /HPF Ur Epithelial Cells (None Seen) /HPF Urine Bacteria (None Seen) /HPF Urine Culture Reflexed (NO) Influenza Type A Ag NEGATIVE (NEGATIVE) Influenza Type B Ag NEGATIVE (NEGATIVE) RSV (PCR) POSITIVE (NEGATIVE) SARS-CoV-2 (PCR) NEGATIVE (NEGATIVE) Slides for Path Review YES 06/29/23 06/29/2323 Range/Units 07:15 07:43 11:20 WBC (4.0-10.5) x10^3/uL RBC (4.1-5.6) x10^6/uL Hgb (12.5-18.0) g/dL Hct (42-50) % MCV (78-100) fL MCH (26-32) pg MCHC (32-36) g/dL RDW (11.5-14.0) % Plt Count (150-450) x10^3/uL MPV (7.5-11.0) fL Gran % (36.0-66.0) % Immature Gran % (Auto) (0.00-0.4) % Nucleat RBC Rel Count (0.00-0.1) % Eos # (Auto) (0-0.5) x10^3/uL Immature Gran # (Auto) (0.00-0.03) x10^3u/L Absolute Lymphs (auto) (1.0-4.6) x10^3/uL Absolute Monos (auto) (0.0-1.3) x10^3/uL Absolute Nucleated RBC (0.00-0.01) x10^3u/L Lymphocytes % (24.0-44.0) % Monocytes % (0.0-12.0) % Eosinophils % (0.00-5.0) % Basophils % (0.0-0.4) % Absolute Granulocytes (1.4-6.9) x10^3/uL Basophils # (0-0.4) x10^3/uL Sodium (137-145) mmol/L Potassium (3.5-5.1) mmol/L Chloride (98-107) mmol/L Carbon Dioxide (22-30) mmol/L Anion Gap (5-15) MEQ/L BUN (9-20) mg/dL Creatinine (0.66-1.25) mg/dL Estimated GFR ML/MIN Glucose (74-106) mg/dL Lactic Acid 1.2 (0.4-2.0) Calcium (8.4-10.2) mg/dL Total Bilirubin (0.2-1.3) mg/dL AST (17-59) U/L ALT (0-50) U/L Alkaline Phosphatase (38-126) U/L Troponin I < 0.012 < 0.012 (0.000-0.034) ng/mL NT-Pro-B Natriuret Pep (<300) pg/mL Serum Total Protein (6.3-8.2) g/dL Albumin (3.5-5.0) g/dL Amylase (30-110) U/L Lipase (23-300) U/L Urine Color (Yellow) Urine Appearance (Clear) Urine pH (4.6-8.0) Ur Specific [place] (1.005-1.030) Urine Protein (Negative) Urine Glucose (UA) (Negative) mg/dL Urine Ketones (Negative) Urine Blood (Negative) Urine Nitrite (Negative) Urine Bilirubin (Negative) Urine Urobilinogen (0.2) mg/dL Ur Leukocyte Esterase (Negative) U Hyaline Cast (Auto) (0-2) /LPF Urine Microscopic RBC (0-5) /HPF Urine Microscopic WBC (0-5) /HPF Ur Epithelial Cells (None Seen) /HPF Urine Bacteria (None Seen) /HPF Urine Culture Reflexed (NO) Influenza Type A Ag (NEGATIVE) Influenza Type B Ag (NEGATIVE) RSV (PCR) (NEGATIVE) SARS-CoV-2 (PCR) (NEGATIVE) Slides for Path Review 06/29/23 06/29/23 Range/Units 13:00 15:10 WBC (4.0-10.5) x10^3/uL RBC (4.1-5.6) x10^6/uL Hgb (12.5-18.0) g/dL Hct (42-50) % MCV (78-100) fL MCH (26-32) pg MCHC (32-36) g/dL RDW (11.5-14.0) % Plt Count (150-450) x10^3/uL MPV (7.5-11.0) fL Gran % (36.0-66.0) % Immature Gran % (Auto) (0.00-0.4) % Nucleat RBC Rel Count (0.00-0.1) % Eos # (Auto) (0-0.5) x10^3/uL Immature Gran # (Auto) (0.00-0.03) x10^3u/L Absolute Lymphs (auto) (1.0-4.6) x10^3/uL Absolute Monos (auto) (0.0-1.3) x10^3/uL Absolute Nucleated RBC (0.00-0.01) x10^3u/L Lymphocytes % (24.0-44.0) % Monocytes % (0.0-12.0) % Eosinophils % (0.00-5.0) % Basophils % (0.0-0.4) % Absolute Granulocytes (1.4-6.9) x10^3/uL Basophils # (0-0.4) x10^3/uL Sodium (137-145) mmol/L Potassium (3.5-5.1) mmol/L Chloride (98-107) mmol/L Carbon Dioxide (22-30) mmol/L Anion Gap (5-15) MEQ/L BUN (9-20) mg/dL Creatinine (0.66-1.25) mg/dL Estimated GFR ML/MIN Glucose (74-106) mg/dL Lactic Acid (0.4-2.0) Calcium (8.4-10.2) mg/dL Total Bilirubin (0.2-1.3) mg/dL AST (17-59) U/L ALT (0-50) U/L Alkaline Phosphatase (38-126) U/L Troponin I < 0.012 (0.000-0.034) ng/mL NT-Pro-B Natriuret Pep (<300) pg/mL Serum Total Protein (6.3-8.2) g/dL Albumin (3.5-5.0) g/dL Amylase (30-110) U/L Lipase (23-300) U/L Urine Color Yellow (Yellow) Urine Appearance Clear (Clear) Urine pH 6.5 (4.6-8.0) Ur Specific [place] 1.015 (1.005-1.030) Urine Protein Negative (Negative) Urine Glucose (UA) Negative (Negative) mg/dL Urine Ketones Negative (Negative) Urine Blood Negative (Negative) Urine Nitrite Negative (Negative) Urine Bilirubin Negative (Negative) Urine Urobilinogen 1.0 A (0.2) mg/dL Ur Leukocyte Esterase Negative (Negative) U Hyaline Cast (Auto) NONE SEEN (0-2) /LPF Urine Microscopic RBC 0-2 (0-5) /HPF Urine Microscopic WBC 0-2 (0-5) /HPF Ur Epithelial Cells None Seen (None Seen) /HPF Urine Bacteria None Seen (None Seen) /HPF Urine Culture Reflexed NO (NO) Influenza Type A Ag (NEGATIVE) Influenza Type B Ag (NEGATIVE) RSV (PCR) (NEGATIVE) SARS-CoV-2 (PCR) (NEGATIVE) Slides for Path Review - Radiology Impressions Radiology Exams & Impressions: Radiology Procedures Category Date Time Status ABDOMEN AND PELVIS W/0 CONTRAS [CT] Stat Exams 06/29/23 06:49 Completed CHEST 1 VIEW (PORTABLE) Stat Exams 06/29/23 06:49 Completed - Other Procedures and Tests Respiratory Therapy 06/29/23 08:47 Respiratory Therapy Assessment DAILY 06/29/23 11:24 Oxygen Nasal Cannula 2 lpm 06/29/23 12:28 Incentive Spirometry TID Assessment/Plan (1) Pneumonia Current Visit: Yes Status: Acute Assessment & Plan: Chest XR 06/29/23 Portable chest demonstrates new subtle bibasilar hazy interstitial alveolar opacities. Heart not enlarged again with tortuous descending aorta and chunky mediastinal calcified nodes. Bony thorax intact again with osteopenia and degenerative changes - BC x2 - Zosyn gave in ER - Sputum culture - rocephin, azithromycin, advair, duonebs - WBC 13.7- trend Code(s): J18.9 - PNEUMONIA, UNSPECIFIED ORGANISM (2) RSV (respiratory syncytial virus infection) Current Visit: Yes Status: Acute Assessment & Plan: - + test - 2LNC- BL RA - advair, duonebs Code(s): B33.8 - OTHER SPECIFIED VIRAL DISEASES (3) Nasal congestion Current Visit: Yes Status: Acute Assessment & Plan: - flonase - add allergy medication if sxs do not improve Code(s): R09.81 - NASAL CONGESTION (4) Sleep apnea Current Visit: Yes Status: Acute Assessment & Plan: - CPAP at [facility]- RT to assist Code(s): G47.30 - SLEEP APNEA, UNSPECIFIED (5) Nausea and vomiting Current Visit: Yes Status: Acute Assessment & Plan: - resolved - compazine as zofran interacts with meds - Protonix - CT Abd/Pelvis 06/29 IMPRESSION: 1. No acute intra-abdominal pathology was identified. 2. 8 cm renal cyst in lower pole of right kidney. 3. Recommendation: Follow up as clinically indicated. Code(s): R11.2 - NAUSEA WITH VOMITING, UNSPECIFIED (6) BPH (benign prostatic hyperplasia) Current Visit: Yes Status: Acute Assessment & Plan: - continue flomax Code(s): N40.0 - BENIGN PROSTATIC HYPERPLASIA WITHOUT LOWER URINRY TRACT SYMP (7) HTN (hypertension) Current Visit: Yes Status: Acute Assessment & Plan: - continue lisinopril - BP stable VTE: plavix PPI: protonix D/c plan: 1-2 days Next of KIN: Rupa Morales [phone] Code status: Full Code(s): I10 - ESSENTIAL (PRIMARY) HYPERTENSION
[2023-06-29] MEDS: Advair Hfa 230/21 Mcg COMMON CANISTER IH SCH (17:27)
[2023-06-29] MEDS: ZOCOR 20MG PO SCH (17:40)
[2023-06-29] MEDS: Flomax 0.4 MG PO SCH (17:40)
[2023-06-29] MEDS ORDERED: NON-FORMULARY ITEM (Simvastatin [Simvastatin] 80 MG Tablet) PO SCH (18:00)
[2023-06-29] MEDS: PROTONIX 40 MG IV IV SCH (18:08)
[2023-06-29] MEDS ORDERED: Sodium Chloride 0.9% W/ 20 mEq KCl/LITER 1,000 ML IV ONE (18:31)
[2023-06-29] MEDS ORDERED: ROCEPHIN 1 Gm-D5w 50 ml Bag** 1 G/50 ML IVPB IV ONE (20:58)
[2023-06-29] MEDS ORDERED: Mucinex 600MG ER Tabs PO ONE (20:58)
[2023-06-29] MEDS: ROCEPHIN 1 Gm-D5w 50 ml Bag** 1 G/50 ML IVPB IV SCH (21:23)
[2023-06-30] MEDS: Sodium Chloride 0.9% 1000 ML 1,000 ML IV SCH ×2 (04:27→15:01)
[2023-06-30 04:54] LABS: Hematocrit 33.1 % (42-50); Hemoglobin 10.6 g/dL (12.5-18.0); Mean Cell Volume 93.5 fL (78-100); Mean Corpuscular Hemoglobin 29.9 pg (26-32); Mean Platelet Volume 9.6 fL (7.5-11.0); Platelet Count 238 x10^3/uL (150-450); Red Blood Count 3.54 x10^6/uL (4.1-5.6); Red Cell Distribution Width 14.4 % (11.5-14.0)
[2023-06-30 05:13] LABS: ALBUMIN 3.1 g/dL (3.5-5.0); Calcium 7.9 mg/dL (8.4-10.2); Creatinine 1 1.06 mg/dL (0.66-1.25); EST GLOMERULAR FILTRATION RATE 67.9 ML/MIN; Potassium 3.9 mmol/L (3.5-5.1); Total Protein 6.3 g/dL (6.3-8.2)
--- NOTE | 2023-06-30 05:15 | PCM.NOTE ---
Date and Time: 06/30/23511 Subjective Assessment: Mr. Morales 87 yo male is an 87 year old male with a pmhx of HLD, HTN, CAIN, GI bleed, CAD with three stents placed that presented to ED 06/29/23 with complaints of cough, congestion, fever, nausea, and dry heaves. CXR demonstrated bilateral opacities. CT abd/pelvis negative for acute etiologies. RSV positive. Lab findings remarkable for leukocytosis with WBC at 13.7. Patient started on Zosyn in the ED. 06/30/23: Met with patient bedside. Endorses continued shortness of breath and wheezing but overall improved since admission. Does have some constipation, requesting stool softener. Patient remains on RA. Most likely will discharge in the morning. - Review of Systems Constitutional: No Symptoms Eyes: No Symptoms Ears, Nose, & Throat: No Symptoms Respiratory: Cough, Short Of Breath Cardiac: No Symptoms Abdominal/Gastrointestinal: Constipation Genitourinary Symptoms: No Symptoms Musculoskeletal: No Symptoms Skin: No Symptoms Neurological: No Symptoms Objective Exam General Appearance: no apparent distress Neurologic Exam: alert, oriented x 3, cooperative Skin Exam: normal color Eye Exam: PERRL Ears, Nose, Throat Exam: moist mucous membranes Neck Exam: normal inspection Respiratory Exam: crackles/rales, wheezing Cardiovascular Exam: regular rate/rhythm, normal heart sounds Gastrointestinal/Abdomen Exam: soft, normal bowel sounds Extremity Exam: normal inspection Back Exam: normal inspection Male Genitalia Exam: deferred Rectal Exam: deferred OBJECTIVE DATA Vital Signs: Vital Signs - 24 hr Temp Pulse Resp BP BP Pulse Ox 06/30/23 04:00 98.7 F 67 16 105/66 95 06/29/23 23:59 99.1 F 68 17 108/64 90 L 06/29/23 20:00 98.9 F 72 20 91/49 94 L 06/29/23 17:31 76 18 98 06/29/23 16:00 97.7 F 74 16 99/57 95 06/29/23 14:17 85 22 94 L 06/29/23 11:52 76 20 92 L 06/29/23 11:43 98.7 F 75 16 121/58 94 L 06/29/23 10:30 117/65 94 L 06/29/23 10:00 102/57 92 L 06/29/23 09:30 92/57 90 L 06/29/23 09:00 80/50 06/29/23 08:47 84 20 92 L 06/29/23 08:30 102/57 91 L 06/29/23 08:23 87 17 115/63 94 L 06/29/23 08:00 115/63 91 L 06/29/23 06:57 93 L 06/29/23 06:41 99.8 F 88 20 131/69 91 L Pain Assessment - Last Documented Pain Intensity 0 Intake and Output: Intake & Output 06/27/23 06/28/23 06/29/23 06/30/23 11:59 11:59 11:59 11:59 Intake Total 3006 Output Total 2100 Balance 906 Weight 83.4 kg Lab Results: Lab Results-Last 24 Hours 06/29/23 06/29/23 06/29/23 Range/Units 06:57 07:15 07:15 WBC 13.7 H (4.0-10.5) x10^3/uL RBC 4.11 (4.1-5.6) x10^6/uL Hgb 12.1 L (12.5-18.0) g/dL Hct 37.3 L (42-50) % MCV 90.8 (78-100) fL MCH 29.4 (26-32) pg MCHC 32.4 (32-36) g/dL RDW 14.2 H (11.5-14.0) % Plt Count 289 (150-450) x10^3/uL MPV 9.3 (7.5-11.0) fL Gran % 86.7 H (36.0-66.0) % Immature Gran % (Auto) 0.4 (0.00-0.4) % Nucleat RBC Rel Count 0.0 (0.00-0.1) % Eos # (Auto) 0.04 (0-0.5) x10^3/uL Immature Gran # (Auto) 0.06 H (0.00-0.03) x10^3u/L Absolute Lymphs (auto) 0.52 L (1.0-4.6) x10^3/uL Absolute Monos (auto) 1.16 (0.0-1.3) x10^3/uL Absolute Nucleated RBC 0.00 (0.00-0.01) x10^3u/L Lymphocytes % 3.8 L (24.0-44.0) % Monocytes % 8.5 (0.0-12.0) % Eosinophils % 0.3 (0.00-5.0) % Basophils % 0.3 (0.0-0.4) % Absolute Granulocytes 11.84 H (1.4-6.9) x10^3/uL Basophils # 0.04 (0-0.4) x10^3/uL Sodium 134 L (137-145) mmol/L Potassium 3.9 (3.5-5.1) mmol/L Chloride 103 (98-107) mmol/L Carbon Dioxide 21 L (22-30) mmol/L Anion Gap 13.9 (5-15) MEQ/L BUN 18 (9-20) mg/dL Creatinine 0.92 (0.66-1.25) mg/dL Estimated GFR 80.5 ML/MIN Glucose 133 H (74-106) mg/dL Lactic Acid (0.4-2.0) Calcium 8.5 (8.4-10.2) mg/dL Total Bilirubin 1.40 H (0.2-1.3) mg/dL AST 35 (17-59) U/L ALT 21 (0-50) U/L Alkaline Phosphatase 102 (38-126) U/L Troponin I (0.000-0.034) ng/mL NT-Pro-B Natriuret Pep 172 (<300) pg/mL Serum Total Protein 7.2 (6.3-8.2) g/dL Albumin 3.9 (3.5-5.0) g/dL Amylase 73 (30-110) U/L Lipase 39 (23-300) U/L Urine Color (Yellow) Urine Appearance (Clear) Urine pH (4.6-8.0) Ur Specific [place] (1.005-1.030) Urine Protein (Negative) Urine Glucose (UA) (Negative) mg/dL Urine Ketones (Negative) Urine Blood (Negative) Urine Nitrite (Negative) Urine Bilirubin (Negative) Urine Urobilinogen (0.2) mg/dL Ur Leukocyte Esterase (Negative) U Hyaline Cast (Auto) (0-2) /LPF Urine Microscopic RBC (0-5) /HPF Urine Microscopic WBC (0-5) /HPF Ur Epithelial Cells (None Seen) /HPF Urine Bacteria (None Seen) /HPF Urine Culture Reflexed (NO) Influenza Type A Ag NEGATIVE (NEGATIVE) Influenza Type B Ag NEGATIVE (NEGATIVE) RSV (PCR) POSITIVE (NEGATIVE) SARS-CoV-2 (PCR) NEGATIVE (NEGATIVE) Slides for Path Review YES 06/29/23 06/29/23 06/29/23 Range/Units 07:15 07:43 11:20 WBC (4.0-10.5) x10^3/uL RBC (4.1-5.6) x10^6/uL Hgb (12.5-18.0) g/dL Hct (42-50) % MCV (78-100) fL MCH (26-32) pg MCHC (32-36) g/dL RDW (11.5-14.0) % Plt Count (150-450) x10^3/uL MPV (7.5-11.0) fL Gran % (36.0-66.0) % Immature Gran % (Auto) (0.00-0.4) % Nucleat RBC Rel Count (0.00-0.1) % Eos # (Auto) (0-0.5) x10^3/uL Immature Gran # (Auto) (0.00-0.03) x10^3u/L Absolute Lymphs (auto) (1.0-4.6) x10^3/uL Absolute Monos (auto) (0.0-1.3) x10^3/uL Absolute Nucleated RBC (0.00-0.01) x10^3u/L Lymphocytes % (24.0-44.0) % Monocytes % (0.0-12.0) % Eosinophils % (0.00-5.0) % Basophils % (0.0-0.4) % Absolute Granulocytes (1.4-6.9) x10^3/uL Basophils # (0-0.4) x10^3/uL Sodium (137-145) mmol/L Potassium (3.5-5.1) mmol/L Chloride (98-107) mmol/L Carbon Dioxide (22-30) mmol/L Anion Gap (5-15) MEQ/L BUN (9-20) mg/dL Creatinine (0.66-1.25) mg/dL Estimated GFR ML/MIN Glucose (74-106) mg/dL Lactic Acid 1.2 (0.4-2.0) Calcium (8.4-10.2) mg/dL Total Bilirubin (0.2-1.3) mg/dL AST (17-59) U/L ALT (0-50) U/L Alkaline Phosphatase (38-126) U/L Troponin I < 0.012 < 0.012 (0.000-0.034) ng/mL NT-Pro-B Natriuret Pep (<300) pg/mL Serum Total Protein (6.3-8.2) g/dL Albumin (3.5-5.0) g/dL Amylase (30-110) U/L Lipase (23-300) U/L Urine Color (Yellow) Urine Appearance (Clear) Urine pH (4.6-8.0) Ur Specific [place] (1.005-1.030) Urine Protein (Negative) Urine Glucose (UA) (Negative) mg/dL Urine Ketones (Negative) Urine Blood (Negative) Urine Nitrite (Negative) Urine Bilirubin (Negative) Urine Urobilinogen (0.2) mg/dL Ur Leukocyte Esterase (Negative) U Hyaline Cast (Auto) (0-2) /LPF Urine Microscopic RBC (0-5) /HPF Urine Microscopic WBC (0-5) /HPF Ur Epithelial Cells (None Seen) /HPF Urine Bacteria (None Seen) /HPF Urine Culture Reflexed (NO) Influenza Type A Ag (NEGATIVE) Influenza Type B Ag (NEGATIVE) RSV (PCR) (NEGATIVE) SARS-CoV-2 (PCR) (NEGATIVE) Slides for Path Review 06/29/23 06/29/23 Range/Units 13:00 15:10 WBC (4.0-10.5) x10^3/uL RBC (4.1-5.6) x10^6/uL Hgb (12.5-18.0) g/dL Hct (42-50) % MCV (78-100) fL MCH (26-32) pg MCHC (32-36) g/dL RDW (11.5-14.0) % Plt Count (150-450) x10^3/uL MPV (7.5-11.0) fL Gran % (36.0-66.0) % Immature Gran % (Auto) (0.00-0.4) % Nucleat RBC Rel Count (0.00-0.1) % Eos # (Auto) (0-0.5) x10^3/uL Immature Gran # (Auto) (0.00-0.03) x10^3u/L Absolute Lymphs (auto) (1.0-4.6) x10^3/uL Absolute Monos (auto) (0.0-1.3) x10^3/uL Absolute Nucleated RBC (0.00-0.01) x10^3u/L Lymphocytes % (24.0-44.0) % Monocytes % (0.0-12.0) % Eosinophils % (0.00-5.0) % Basophils % (0.0-0.4) % Absolute Granulocytes (1.4-6.9) x10^3/uL Basophils # (0-0.4) x10^3/uL Sodium (137-145) mmol/L Potassium (3.5-5.1) mmol/L Chloride (98-107) mmol/L Carbon Dioxide (22-30) mmol/L Anion Gap (5-15) MEQ/L BUN (9-20) mg/dL Creatinine (0.66-1.25) mg/dL Estimated GFR ML/MIN Glucose (74-106) mg/dL Lactic Acid (0.4-2.0) Calcium (8.4-10.2) mg/dL Total Bilirubin (0.2-1.3) mg/dL AST (17-59) U/L ALT (0-50) U/L Alkaline Phosphatase (38-126) U/L Troponin I < 0.012 (0.000-0.034) ng/mL NT-Pro-B Natriuret Pep (<300) pg/mL Serum Total Protein (6.3-8.2) g/dL Albumin (3.5-5.0) g/dL Amylase (30-110) U/L Lipase (23-300) U/L Urine Color Yellow (Yellow) Urine Appearance Clear (Clear) Urine pH 6.5 (4.6-8.0) Ur Specific [place] 1.015 (1.005-1.030) Urine Protein Negative (Negative) Urine Glucose (UA) Negative (Negative) mg/dL Urine Ketones Negative (Negative) Urine Blood Negative (Negative) Urine Nitrite Negative (Negative) Urine Bilirubin Negative (Negative) Urine Urobilinogen 1.0 A (0.2) mg/dL Ur Leukocyte Esterase Negative (Negative) U Hyaline Cast (Auto) NONE SEEN (0-2) /LPF Urine Microscopic RBC 0-2 (0-5) /HPF Urine Microscopic WBC 0-2 (0-5) /HPF Ur Epithelial Cells None Seen (None Seen) /HPF Urine Bacteria None Seen (None Seen) /HPF Urine Culture Reflexed NO (NO) Influenza Type A Ag (NEGATIVE) Influenza Type B Ag (NEGATIVE) RSV (PCR) (NEGATIVE) SARS-CoV-2 (PCR) (NEGATIVE) Slides for Path Review Radiology Exams: Radiology Procedures Category Date Time Status ABDOMEN AND PELVIS W/0 CONTRAS [CT] Stat Exams 06/29/23 06:49 Completed CHEST 1 VIEW (PORTABLE) Stat Exams 06/29/23 06:49 Completed Assessment/Plan (1) Pneumonia Current Visit: Yes Status: Acute Assessment & Plan: Chest XR 06/29/23 Portable chest demonstrates new subtle bibasilar hazy interstitial alveolar opacities. Heart not enlarged again with tortuous descending aorta and chunky mediastinal calcified nodes. Bony thorax intact again with osteopenia and degenerative changes - BC x2 - Zosyn gave in ER - Sputum culture - rocephin, azithromycin, marciano koenigonejeanne - WBC 13.7- trend 06/30: -Will add prednisone for wheezing -Continue ceftriaxone/azith Code(s): J18.9 - PNEUMONIA, UNSPECIFIED ORGANISM (2) RSV (respiratory syncytial virus infection) Current Visit: Yes Status: Acute Assessment & Plan: - + test - 2LNC- BL RA - adv, marcianoonebs Code(s): B33.8 - OTHER SPECIFIED VIRAL DISEASES (3) Nasal congestion Current Visit: Yes Status: Acute Assessment & Plan: - flonase - add allergy medication if sxs do not improve Code(s): R09.81 - NASAL CONGESTION (4) Sleep apnea Current Visit: Yes Status: Acute Assessment & Plan: - CPAP at NOC- RT to assist Code(s): G47.30 - SLEEP APNEA, UNSPECIFIED (5) Nausea and vomiting Current Visit: Yes Status: Acute Assessment & Plan: - resolved - compazine as zofran interacts with meds - Protonix - CT Abd/Pelvis 06/29 IMPRESSION: 1. No acute intra-abdominal pathology was identified. 2. 8 cm renal cyst in lower pole of right kidney. 3. Recommendation: Follow up as clinically indicated. Code(s): R11.2 - NAUSEA WITH VOMITING, UNSPECIFIED (6) BPH (benign prostatic hyperplasia) Current Visit: Yes Status: Acute Assessment & Plan: - continue flomax Code(s): N40.0 - BENIGN PROSTATIC HYPERPLASIA WITHOUT LOWER URINRY TRACT SYMP (7) HTN (hypertension) Current Visit: Yes Status: Acute Assessment & Plan: - continue lisinopril - BP stable VTE: plavix PPI: protonix D/c plan: 1-2 days Next of KIN: Rupa Morales [phone] Code status: Full Code(s): J18.9 - PNEUMONIA, UNSPECIFIED ORGANISM (2) BPH (benign prostatic hyperplasia) Current Visit: Yes Status: Acute Code(s): N40.0 - BENIGN PROSTATIC HYPERPLASIA WITHOUT LOWER URINRY TRACT SYMP (3) HTN (hypertension) Current Visit: Yes Status: Acute Code(s): I10 - ESSENTIAL (PRIMARY) HYPERTENSION (4) Nasal congestion Current Visit: Yes Status: Acute Code(s): R09.81 - NASAL CONGESTION (5) Nausea and vomiting Current Visit: Yes Status: Acute Code(s): R11.2 - NAUSEA WITH VOMITING, UNSPECIFIED (6) RSV (respiratory syncytial virus infection) Current Visit: Yes Status: Acute Code(s): B33.8 - OTHER SPECIFIED VIRAL DISEASES (7) Sleep apnea Current Visit: Yes Status: Acute Code(s): G47.30 - SLEEP APNEA, UNSPECIFIED
[2023-06-30] MEDS: DUONEB 0.5-3 MG/3 ml Neb IH SCH ×4 (05:19→18:31)
[2023-06-30] MEDS: Advair Hfa 230/21 Mcg COMMON CANISTER IH SCH ×2 (05:23→18:41)
[2023-06-30] MEDS: Zestril 20 MG PO SCH (08:56)
[2023-06-30] MEDS: HYTRIN 1 MG PO SCH (08:56)
[2023-06-30] MEDS: Mucinex 600MG ER Tabs PO SCH ×2 (08:56→21:22)
[2023-06-30] MEDS: PLAVIX Tablet PO SCH (08:56)
[2023-06-30] MEDS: Zithromax 500 MG/ 250 ML NaCl Premix 500 MG/250 ML IVPB IV SCH (08:57)
[2023-06-30] MEDS: Flonase NASAL NS SCH (08:59)
[2023-06-30] MEDS: Docusate Sodium 100 MG PO SCH ×2 (09:28→21:22)
[2023-06-30] MEDS ORDERED: TERAZOSIN HCL 5 MG PO SCH (10:00)
[2023-06-30] MEDS ORDERED: Miralax Powder 17GM PACKET PO PRN (10:00)
[2023-06-30] MEDS: DELTASONE 20 MG PO SCH (15:01)
[2023-06-30] MEDS: ZOCOR 20MG PO SCH (17:02)
[2023-06-30] MEDS: PROTONIX 40 MG IV IV SCH (17:03)
[2023-06-30] MEDS: Flomax 0.4 MG PO SCH (17:03)
[2023-06-30] MEDS: ROCEPHIN 1 Gm-D5w 50 ml Bag** 1 G/50 ML IVPB IV SCH (21:21)
[2023-07-01] MEDS: Sodium Chloride 0.9% 1000 ML 1,000 ML IV SCH ×2 (01:30→11:23)
--- NOTE | 2023-07-01 05:18 | PCM.DS ---
Discharge Summary Date of Admission: 06/29/23 11:13 Date of Discharge: 07/01/23 Admitting Physician: STEVE CAMACHO MD Primary Care Provider: JENNY WALTON Allergies Allergies No Known Drug Allergies Allergy (Verified 06/29/23 06:59) Hospital Summary - Hospital Course Hospital Course: Mr. Morales 87 yo male is an 87 year old male with a pmhx of HLD, HTN, CAIN, GI bleed, CAD with three stents placed that presented to ED 06/29/23 with complaints of cough, congestion, fever, nausea, and dry heaves. CXR demonstrated bilateral opacities. CT abd/pelvis negative for acute etiologies. RSV positive. Lab findings remarkable for leukocytosis with WBC at 13.7. Admitted for pneumonia/RSV, started on Zosyn in the ED later changed to ceftriaxone/azithromycin. Dyspnea and cough improved. He is now on room air and oxygenating well. Patient advised follow up with PCP. Will discharge home on prednisone burst and cefpodoxime. Patient and spouse agreeable to plan and ready for discharge. New Diagnosis:RSV New Medications:Prednisone/cefpodoxime Follow Up: PCP Latest Assessment & Plan Chest XR 06/29/23 Portable chest demonstrates new subtle bibasilar hazy interstitial alveolar opacities. Heart not enlarged again with tortuous descending aorta and chunky mediastinal calcified nodes. Bony thorax intact again with osteopenia and degenerative changes - BC x2 - Zosyn gave in ER - Sputum culture - rocephin, azithromycin, advair, duonebs - WBC 13.7- trend 06/30: -Will add prednisone for wheezing -Continue ceftriaxone/azith Code(s): J18.9 - PNEUMONIA, UNSPECIFIED ORGANISM (2) RSV (respiratory syncytial virus infection) Current Visit: Yes Status: Acute Assessment & Plan: - + test - 2LNC- BL RA - advair, duonebs Code(s): B33.8 - OTHER SPECIFIED VIRAL DISEASES (3) Nasal congestion Current Visit: Yes Status: Acute Assessment & Plan: - flonase - add allergy medication if sxs do not improve Code(s): R09.81 - NASAL CONGESTION (4) Sleep apnea Current Visit: Yes Status: Acute Assessment & Plan: - CPAP at [facility]- RT to assist Code(s): G47.30 - SLEEP APNEA, UNSPECIFIED (5) Nausea and vomiting Current Visit: Yes Status: Acute Assessment & Plan: - resolved - compazine as alexis interacts with meds - Protonix - CT Abd/Pelvis 06/29 IMPRESSION: 1. No acute intra-abdominal pathology was identified. 2. 8 cm renal cyst in lower pole of right kidney. 3. Recommendation: Follow up as clinically indicated. Code(s): R11.2 - NAUSEA WITH VOMITING, UNSPECIFIED (6) BPH (benign prostatic hyperplasia) Current Visit: Yes Status: Acute Assessment & Plan: - continue flomax Code(s): N40.0 - BENIGN PROSTATIC HYPERPLASIA WITHOUT LOWER URINRY TRACT SYMP (7) HTN (hypertension) Current Visit: Yes Status: Acute Assessment & Plan: - continue lisinopril - BP stable I spent 35 minutes [id number] with the patient on the day of discharge performing discharge exam, discussing hospital stay and discharge instructions with patient and caregivers, preparation of discharge records, prescriptions & referral forms and addressing any questions/concerns the patient had as documented above. - Vitals & Intake/Output Vital Signs: Vital Signs Temperature 97.4 F 07/01/23 04:00 Pulse Rate 70 07/01/23 04:00 Respiratory Rate 20 07/01/23 04:00 Blood Pressure 165/92 07/01/23 04:00 O2 Sat by Pulse Oximetry 95 07/01/23 04:00 Intake & Output: Intake & Output 06/28/23 06/29/23 06/30/23 07/01/23 11:59 11:59 11:59 11:59 Intake Total 3366 3241 Output Total 3200 3700 Balance 166 -459 Weight 83.4 kg - Lab Result Diagrams: 07/01/23 05:57 07/01/23 05:57 Lab Results-Last 24 Hrs: Lab Results-Last 24 Hours 06/30/23 06/30/23 Range/Units 04:50 04:50 WBC 13.0 H (4.0-10.5) x10^3/uL RBC 3.54 L (4.1-5.6) x10^6/uL Hgb 10.6 L (12.5-18.0) g/dL Hct 33.1 L (42-50) % MCV 93.5 (78-100) fL MCH 29.9 (26-32) pg MCHC 32.0 (32-36) g/dL RDW 14.4 H (11.5-14.0) % Plt Count 238 (150-450) x10^3/uL MPV 9.6 (7.5-11.0) fL Sodium 133 L (137-145) mmol/L Potassium 3.9 (3.5-5.1) mmol/L Chloride 104 (98-107) mmol/L Carbon Dioxide 24 (22-30) mmol/L Anion Gap 9.0 (5-15) MEQ/L BUN 17 (9-20) mg/dL Creatinine 1.06 (0.66-1.25) mg/dL Estimated GFR 67.9 ML/MIN Glucose 105 (74-106) mg/dL Calcium 7.9 L (8.4-10.2) mg/dL Total Bilirubin 1.00 (0.2-1.3) mg/dL AST 22 (17-59) U/L ALT 16 (0-50) U/L Alkaline Phosphatase 79 (38-126) U/L Serum Total Protein 6.3 (6.3-8.2) g/dL Albumin 3.1 L (3.5-5.0) g/dL - Radiology Exams Ordered Rad Exams-Entire Visit: Radiology Procedures Category Date Time Status ABDOMEN AND PELVIS W/0 CONTRAS [CT] Stat Exams 06/29/23 06:49 Completed CHEST 1 VIEW (PORTABLE) Stat Exams 06/29/23 06:49 Completed - Procedures and Test Procedures and Tests throughout Hospitalization: Therapy Orders & Screens 06/29/23 08:47 Respiratory Therapy Assessment DAILY Comment: 06/29/23 11:24 Oxygen Nasal Cannula 2 lpm Comment: Respiratory Therapy Consult ONCE Comment: Reason For Exam: 06/29/23 12:28 PT Eval & Treat (MD Order) ONCE Reason for Eval:: weakness due to SOB Diagnosis: Pneumonia Incentive Spirometry TID Comment: Diagnosis: Pneumonia 06/29/23 17:39 RT Miscellaneous Order ROUTINE Comment: Physician Instructions: Reason For Exam: CPAP at night Diagnosis: Pneumonia 06/30/23 21:53 BiPap/CPAP ROUTINE Comment: Diagnosis: Pneumonia Discharge Exam General Appearance: no apparent distress Neurologic Exam: alert, oriented x 3, cooperative Eye Exam: PERRL Ears, Nose, Throat Exam: normal ENT inspection Neck Exam: normal inspection Respiratory Exam: normal breath sounds, lungs clear Cardiovascular Exam: regular rate/rhythm, normal heart sounds Gastrointestinal/Abdomen Exam: soft, normal bowel sounds Male Genitalia Exam: deferred Rectal Exam: deferred Back Exam: normal inspection Extremity Exam: normal inspection Final Diagnosis/Problem List - Final Discharge Diagnosis/Problem (1) Pneumonia Current Visit: Yes Status: Acute Code(s): J18.9 - PNEUMONIA, UNSPECIFIED ORGANISM (2) BPH (benign prostatic hyperplasia) Current Visit: Yes Status: Acute Code(s): N40.0 - BENIGN PROSTATIC HYPERPLASIA WITHOUT LOWER URINRY TRACT SYMP (3) HTN (hypertension) Current Visit: Yes Status: Acute Code(s): I10 - ESSENTIAL (PRIMARY) HYPERTENSION (4) Nasal congestion Current Visit: Yes Status: Acute Code(s): R09.81 - NASAL CONGESTION (5) Nausea and vomiting Current Visit: Yes Status: Acute Code(s): R11.2 - NAUSEA WITH VOMITING, UNSPECIFIED (6) RSV (respiratory syncytial virus infection) Current Visit: Yes Status: Acute Code(s): B33.8 - OTHER SPECIFIED VIRAL DISEASES (7) Sleep apnea Current Visit: Yes Status: Acute Code(s): G47.30 - SLEEP APNEA, UNSPECIFIED - Discharge Disposition: Home, Self-Care Condition: Good Prescriptions: New Prednisone 20 mg [Deltasone 20 mg] 20 mg PO DAILY 5 Days #5 tablet Cefpodoxime Proxetil 200 mg [Vantin 200 mg] 200 mg PO BID 5 Days #10 tablet Continue Simvastatin 40 mg PO EVENING MEAL Terazosin HCl 5 mg [Hytrin 5Mg] 5 mg PO DAILY Lisinopril 10 mg [Zestril 10 MG] 20 mg PO DAILY Clopidogrel Bisulfate [PLAVIX Tablet] 75 mg PO DAILY Tamsulosin HCl 0.4 mg [Flomax 0.4 MG] 0.4 mg PO EVENING MEAL Instructions: Pneumonia, Adult (DC), Respiratory Syncytial Virus, Infant and Child (DC), Respiratory Syncytial Virus, Adult (DC) Follow up with: JENNY WALTON [Primary Care Provider] - 07/08/23 9:00 am
[2023-07-01 06:10] LABS: Absolute Neutrophil Ct (ANC) 8.45 x10^3/uL (1.4-6.9); BASOPHIL % 0.1 % (0.0-0.4); Basophil (Absolute #) 0.01 x10^3/uL (0-0.4); Eosinophil % 0.1 % (0.00-5.0); Eosinophil (Absolute #) 0.01 x10^3/uL (0-0.5); Hematocrit 33.5 % (42-50); Hemoglobin 10.8 g/dL (12.5-18.0); IMMATURE GRAN # 0.05 x10^3u/L (0.00-0.03); IMMATURE GRAN % 0.5 % (0.00-0.4); Lymphocyte (Absolute #) 0.74 x10^3/uL (1.0-4.6); Lymphocytes % 7.3 % (24.0-44.0); Mean Cell Volume 92.8 fL (78-100); Mean Corpuscular Hemoglobin 29.9 pg (26-32); Mean Corpuscular Hgb Concent. 32.2 g/dL (32-36); Mean Platelet Volume 9.8 fL (7.5-11.0); Monocyte (Absolute #) 0.89 x10^3/uL (0.0-1.3); Monocytes % 8.8 % (0.0-12.0); Neutrophil % 83.2 % (36.0-66.0); Platelet Count 264 x10^3/uL (150-450); Red Blood Count 3.61 x10^6/uL (4.1-5.6); Red Cell Distribution Width 14.3 % (11.5-14.0); White Blood Count 10.2 x10^3/uL (4.0-10.5)
[2023-07-01 06:40] LABS: ALBUMIN 3.6 g/dL (3.5-5.0); ANION GAP 13.2 MEQ/L (5-15); BILIRUBIN,TOTAL 0.5 mg/dL (0.2-1.3); Calcium 8.4 mg/dL (8.4-10.2); Creatinine 1 0.76 mg/dL (0.66-1.25); Potassium 4.4 mmol/L (3.5-5.1)
[2023-07-01] MEDS: DUONEB 0.5-3 MG/3 ml Neb IH SCH ×2 (07:04→10:43)
[2023-07-01] MEDS: Advair Hfa 230/21 Mcg COMMON CANISTER IH SCH (07:08)
[2023-07-01 07:17] VITALS: O2SAT 96
[2023-07-01] MEDS: PLAVIX Tablet PO SCH (09:04)
[2023-07-01] MEDS: HYTRIN 1 MG PO SCH (09:05)
[2023-07-01] MEDS: Docusate Sodium 100 MG PO SCH (09:05)
[2023-07-01] MEDS: DELTASONE 20 MG PO SCH (09:05)
[2023-07-01] MEDS: Zestril 20 MG PO SCH (09:06)
[2023-07-01] MEDS: Mucinex 600MG ER Tabs PO SCH (09:06)
[2023-07-01] MEDS: Zithromax 500 MG/ 250 ML NaCl Premix 500 MG/250 ML IVPB IV SCH (09:07)
[2023-07-01] MEDS: Flonase NASAL NS SCH (09:14)
[2023-07-01 10:48] VITALS: RESP 16
[2023-07-01 11:35] VITALS: BP 157/74; PULSE 72; TEMP 97.8
== END 2023-07-01 12:50 | disposition home or self-care (01) ==
LOC: ED 06:28 → INTOOBSV 11:13 → MED SURG 11:13
PROVIDERS: ADMIT Internal Medicine; ATTEND Internal Medicine
DX: J18.9 Pneumonia, unspecified organism (principal); B97.4 Respiratory syncytial virus as the cause of diseases classified elsewhere; R10.9 Unspecified abdominal pain; D72.829 Elevated white blood cell count, unspecified; R11.2 Nausea with vomiting, unspecified; Z79.899 Other long term (current) drug therapy; Z79.01 Long term (current) use of anticoagulants; I10 Essential (primary) hypertension; Z20.828 Contact with and (suspected) exposure to other viral communicable diseases; N40.0 Benign prostatic hyperplasia without lower urinary tract symptoms; G47.30 Sleep apnea, unspecified
CPT/HCPCS: 0241U; 36415; 71045; 74176; 80053; 81001; 82150; 83605; 83690; 83880; 84484; 85025; 85027; 87040; 87070; 93005; 93268; 94640; 94660; 94762; 96365; 96374; 96375; 97161; 99284; G0378; Q3014; J0456; J0696; J2405; A9270-GY